=== PATIENT | female | born 1955 | race Caucasian/White ===

== ENCOUNTER 2017-07-01 06:37 | Inpatient (IN) | payer OTHER ==
[~2017-07-01] VITALS: Ht 170.2 cm; Wt 60.3 kg
[2017-07-01] VITALS (8 sets, daily range): BP systolic 115–155; BP diastolic 64–77
[~2017-07-01 06:37] MED LIST: NOHOMEMEDICATIONS; NORCO 5-325 TA1 EACH PO
[2017-07-01] MEDS ORDERED: XANAX 0.5 MG0.5 MG PO (06:40)
[2017-07-01] MEDS ORDERED: TRAZODONE 150150 M1 PO (06:40)
[2017-07-01] MEDS ORDERED: LYRICA 50 MG50 MG PO (06:41)
[2017-07-01] MEDS ORDERED: METFORMIN HCL500 MG PO (06:41)
[2017-07-01] MEDS ORDERED: NEURONTIN 300300 M1 PO (06:41)
[2017-07-01] MEDS ORDERED: CARISOPRODOL 3350 MG PO (06:41)
[2017-07-01] MEDS ORDERED: SYNTHROID75 MCG PO (06:42)
[2017-07-01 07:11] LABS: HEMATOCRIT 42.8 % (37.0-47.0); HEMOGLOBIN 14.5 gm/dL (12.0-15.0); MCHC 33.8 g/dL (28.0-37.0); MCV 97.6 fL (80.0-100.0); MPV 7.2 fl. (7.2-11.1); NUCLEATED RBCS 0 /100WBC; PLATELET COUNT* 254 thou/uL (150-400); RBC 4.39 mil/uL (4.20-5.00); RDW-CV 12.5 % (10.5-14.5); WBC 20.2 thou/uL (4.0-11.0)
[2017-07-01 07:21] LABS: ANION GAP 10 mmol/L (7-16); BUN 18 mg/dL (7-18); CALCIUM 9.4 mg/dL (8.5-10.1); CHLORIDE 104 mmol/L (98-107); CO2 25 mmol/L (21-32); CREATININE 0.9 mg/dL (0.6-1.3); GLUCOSE 57 mg/dL (70-99); POTASSIUM 3.6 mmol/L (3.5-5.1); SODIUM 139 mmol/L (136-145)
[2017-07-01 07:22] LABS: APTT 27.8 Seconds (25.0-31.3); PROTIME 9.4 Seconds (9.20-11.50)
[2017-07-01 07:39] LABS: ALBUMIN 4.5 g/dL (3.4-5.0); ALKALINE PHOSPHATASE 112 U/L (46-116); CK-MB MASS 13.3 ng/mL (<0.5-3.6); NT-PRO BRAIN NAT PEPTIDE 437 pg/mL (<300); SGOT 48 U/L (15-37); SGPT 40 U/L (30-65); TOTAL BILIRUBIN 0.2 mg/dL (<0.1-1.0); TOTAL PROTEIN 8.5 g/dL (6.4-8.2); TROPONIN-I LEVEL <0.06 ng/mL (<0.06)
[2017-07-01 07:58] LABS: ABSOLUTE LYMPHOCYTES 0.6 thou/uL (0.8-5.3); ABSOLUTE MONOCYTES 0.4 thou/uL (0.0-1.2); ABSOLUTE NEUTROPHILS 19.2 thou/uL (1.6-8.1)
[2017-07-01 07:59] LABS: PLATELET ESTIMATE ADEQUATE
[2017-07-01 08:28] LABS: URINE BILIRUBIN NEGATIVE (Negative); URINE BLOOD NEGATIVE (Negative); URINE CLARITY CLEAR; URINE COLOR YELLOW; URINE GLUCOSE-RANDOM NEGATIVE (Negative); URINE KETONES NEGATIVE (Negative); URINE LEUKOCYTES-REFLEX NEGATIVE (Negative); URINE NITRITE-REFLEX NEGATIVE (Negative); URINE PROTEIN NEGATIVE (Negative); URINE UROBILINOGEN 0.2 E.U./dl (0.2-1.0)
[2017-07-01 10:11] LABS: BE -0.3 mmol/L (-2 to +3); HCO3 21.4 mmol/L (22.0-26.0); PO2 83.3 mmHg (75.0-100.0); pH 7.517 (7.340-7.450)
--- NOTE | 2017-07-01 10:35 | EKG ---
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 : 1955 Requested By: Denis Brown Order Number: [id number] MD: Jackson Newell Measurements Intervals [place] Rate: 64 P: 65 GA: 149 QRS: -45 QRSD: 105 T: 47 QT: 494 QTc: 510 Interpretive Statements Sinus rhythm Left anterior fascicular block Prolonged QT interval No previous ECG available for comparison Electronically Signed On 07-01-2017 10:35:12 MARKETING OPERATIONS ASSISTANT by Jackson Newell [email or web address] <ELECTRONICALLY SIGNED> By: Jackson Newell MD, [facility] 07/01/17 [id number] Jackson Newell MD, [facility] /EPI
[2017-07-01 15:33] LABS: AMP/METHAMP Negative (Negative); BARBITURATES Negative (Negative); BENZODIAZEPINES Negative (Negative); COCAINE Negative (Negative); METHADONE Negative (Negative); OPIATES POSITIVE (Negative); PCP Negative (Negative); THC Negative (Negative)
--- NOTE | 2017-07-01 15:48 | NUR ---
CONSULTED TO ASSIST WITH CENTRAL LINE PLACEMENT IN ED. ASSESSED SITUATION WITH DR. ASH. PT ALEADY PREPED AND DRAPED PER PROTOCOL. STERILE GOWN AND GLOVE AFTER HAND HYGINE. RIGHT IJ IDENTIFIED WITH ULTRASOUND AND NOTED TO BE WIDLEY PATENT AND EASILY COMPRESSABLE. RIGHT IJ CANNULATED WITH IMMEDIATE BLOOD RETURN NOTED. WIRE PASSED WITHOUT RESISTANCE. SKIN ESTEFANY TO INSERTION SITE. DIALATER INTRODUCED OVER WIRE AND THEN REMOVED. TRIPLE LUMAN CATH INSERTED OVER WIRE WITH NO RESISTANCE MET. WIRE REMOVED. DR. ASH SUTURED LINE IN PLACE. DRESSING APPLIED. ALL PORT FLUSH EASE AND HAVE GOOD BRISK BLOOD RETURN. STAT CHEST X-RAY SHOWS TIP IN SVC.
--- NOTE | 2017-07-01 18:00 | NUR ---
PT ARRIVED TO ROOM ICU 5 VIA CART FROM ED. PT ASSESSMENT CHARTED. VSS THROUGHOUT THE SHIFT. BLOOD SUGAR AT IT'S LOWEST WAS 21 TREATED WITH PRN D50 IV PUSH. PT BECOMES VERY LETHARGIC, CONFUSED, COOL AND CLAMMY AT THIS STATE. CENTRAL LINE PLACED IN THE ED. NO COMPLAINTS OF NAUSEA OR VOMMITING. PT BECAME MORE A&O LATER IN THE AFTERNOON AND WAS ABLE TO EAT A BOXED LUNCH, DINNER, JUICE, AND SODA. IV FLUIDS WERE CHANGED TO D20 NS @ 100. PT CONTINUES TO BECOME MORE ALERT. PT IS COMPLAINING OF INCREASED BACK, SHOULDER, AND NECK PAIN. PRN PAIN MEDICATION ORDER RECEIVED. NO OTHER COMPLAINTS.
[2017-07-02] VITALS (12 sets, daily range): BP systolic 123–151; BP diastolic 66–87
--- NOTE | 2017-07-02 05:16 | NUR ---
PATIENT PRGRESSING TOWARDS DISCHARGE GOALS. BS HAVE BEEN STABLE SINCE 2199. PT ABLE TO TOLERATE APPLE JUICE AND ISATU CRACKERS WELL. PT HAS BEEN COMPLAINING OF GENERALIZED PAIN ALL OVER. PATIENT WANTS TO GET OUT OF BED AND WALK AROUND THE UNIT. ALERT ORIENT BUT CONFUSED AT TIMES. CONSISTENT REORIENTATION GIVEN. PT WAS ANXIOUS/TEARY-EYED MOST OF THE SHIFT. ALOT OF REASSURANCE AND EDUCATION GIVEN TO EASE ANXIETY. PT RR, HR, BP, O2 ALL WNL. FALL PRECAUTIONS IN PLACE, EDUCATION GIVEN AND PT VOICED UNDERSTANDING. WILL CONTINUE TO MONITOR CLOSELY.
[2017-07-02 07:36] LABS: C-PEPTIDE 22.5 ng/mL (1.1-4.4); INSULIN 120.3 uIU/mL (2.6-24.9)
--- NOTE | 2017-07-02 13:14 | NUR ---
PATIENT IS MED [facility] STATUS. VERY ARGUMENTATIVE AND AGITATED. CATHETER D/C PER PATIENT REQUEST. HAS A MIGRAINE BUT MEDICATIONS DO NOT HELP. SUGARS HAVE REMAINED IN A STABLE RANGE TODAY WITHOUT D10 FLUIDS. PATIENT WILL GO TO ROOM 311 ONCE REPORT IS CALLED. BED IN LOWEST POSITION, CALL LIGHT IN REACH, PREFABRICATED HOUSES TRIMMER IN PLACE.
[2017-07-02 14:12] LABS: ALBUMIN 2.7 g/dL (3.4-5.0); CALCIUM 8.3 mg/dL (8.5-10.1); CREATININE 0.7 mg/dL (0.6-1.3); POTASSIUM 3.8 mmol/L (3.5-5.1); TOTAL BILIRUBIN 0.1 mg/dL (<0.1-1.0); TOTAL PROTEIN 5.5 g/dL (6.4-8.2)
--- NOTE | 2017-07-02 14:18 | NUR ---
PATIENT LEFT ARM IS BOTHERING HER THE LAST 30 MINS. IS SWOLLEN FROM ELBOW TO WRIST, PAINFUL TO TOUCH. IV DC ON THAT ARM BUT NOTHING HAS BEEN RUNNING THROUGH THAT ALL DAY. DR LEWIS NOTIFIED
[2017-07-02 14:38] LABS: HEMATOCRIT 33.1 % (37.0-47.0); MCH 33.1 pg (26.0-34.0); MCHC 34.4 g/dL (28.0-37.0); MPV 8.1 fl. (7.2-11.1); RBC 3.45 mil/uL (4.20-5.00); RDW-CV 12.7 % (10.5-14.5); WBC 11.5 thou/uL (4.0-11.0)
[2017-07-02 14:40] LABS: HEMOGLOBIN 11.4 gm/dL (12.0-15.0)
--- NOTE | 2017-07-02 15:04 | NUR ---
PATIENT CAME TO THE FLOOR FROM THE ICU AT 1504 VIA WHEELCHAIR WITH FAMILY. PATIENT IS IN STABLE CONDITION. AGREE WITH THE ASSESSMENT FROM EARLIER TODAY, EDUCATION ON ROOM HAS BEEN DONE.
--- NOTE | 2017-07-02 18:02 | NUR ---
PATIENT CAME TO THE FLOOR TODAY FROM THE ICU IN STABLE CONDITION. COMPLAINS OF A HEADACHE/MIGRAINE BUT DOES NOT REQUEST ANY MEDICATION. PATIENT IS UP ALIB ROOM, FAMILY IS AT BEDSIDE OFF AND ON. CALL LIGHT IS IN REACH, WILL CONTINUE TO MONITOR.
[2017-07-03 00:24] VITALS: BP 121/70
[2017-07-03 04:32] VITALS: BP 138/92
--- NOTE | 2017-07-03 06:52 | NUR ---
PATIENT SLEPT PART OF THE NIGHT. PATIENT WAS SINUS TACH ON THE MONITOR MOST OF THE NIGHT 100-120'S BUT DROPPED BACK DOWN TO 70-80'S ABOUT 0500. PATIENT WAS GIVEN IMITREX ONCE FOR MIGRAINE AND HYDROCODONE ONCE FOR BACK PAIN. PATIENT IS HOPING TO GO HOME TODAY. WILL CONTINUE TO MONITOR.
[2017-07-03 09:15] VITALS: BP 109/78
[2017-07-03 10:01] VITALS: BP 109/78
--- NOTE | 2017-07-03 10:27 | NUR ---
MET WITH PT TO DISCUSS HOME SITUATION/DC PLANNING. PT LIVES WITH SPOUSE. SHE STATES SHE IS INDEPENDENT AND ACTIVE. HAS BEEN DIABETIC FOR ABOUT 5 YRS AND STATES SHE MANAGES IT WELL AND 'KNOW WHAT HAPPENED.' SHE HAS METER AND SUPPLIES AT HOME. PT USES NO OTHER EQUIPMENT AND PLANS TO RETURN HOME AT DC AND HOPES IT'S TODAY.
--- NOTE | 2017-07-03 11:26 | NUR ---
PATIENT DISCHARGED TO HOME WITH SPOUSE. CENTRAL LINE DC'D PER PROTOCOL. BS 131 THIS AM, NO INSULIN REQUIRED. IV SL DC'D. VERBALIZES UNDERSTANDING OF PAPEWORK, NO SCRIPTS. PATIENT TAKEN OUT WITH ALL BELONGINGS VIA WHEELCHAIR WITH STAFF.
== END 2017-07-03 10:45 | disposition home or self-care (01) | DRG 917 ==
LOC: M.ERS 06:37 → M.TBA-ER 10:05 → M.ICU 10:05 → M.3W 07-02 15:02
PROVIDERS: Family Medicine; Personal Emergency Response Attendant; ADMIT Internal Medicine
PROC: 02HV33Z Insertion of Infusion Device into Superior Vena Cava, Percutaneous Approach (ICD-10-PCS; principal; 2017-07-01)
DX: T38.3X1A Poisoning by insulin and oral hypoglycemic [antidiabetic] drugs, accidental (unintentional), initial encounter (principal); G93.41 Metabolic encephalopathy; J96.10 Chronic respiratory failure, unspecified whether with hypoxia or hypercapnia; E11.649 Type 2 diabetes mellitus with hypoglycemia without coma; F17.210 Nicotine dependence, cigarettes, uncomplicated; D72.829 Elevated white blood cell count, unspecified; F41.9 Anxiety disorder, unspecified; E03.9 Hypothyroidism, unspecified; M54.9 Dorsalgia, unspecified; G89.29 Other chronic pain; G43.909 Migraine, unspecified, not intractable, without status migrainosus; Z88.6 Allergy status to analgesic agent; Z83.3 Family history of diabetes mellitus; Z84.1 Family history of disorders of kidney and ureter; Y92.89 Other specified places as the place of occurrence of the external cause

== ENCOUNTER → 2018-12-08 | Outpatient (CLI) | payer OTHER ==
[~2018-12-08] MED LIST changes: +CARISOPRODOL 3350 MG PO; +HYDROCODON-ACE1 EAC8 PO; +LYRICA 50 MG50 MG PO; +METFORMIN HCL500 MG PO; +NEURONTIN 300300 M1; +NEURONTIN 300300 M1 PO; +SYNTHROID75 MCG PO; +TRAZODONE 150150 M1 PO; +XANAX 0.5 MG0.5 MG PO
== END ==
LOC: M.PC 01:18
DX: M51.16 Intervertebral disc disorders with radiculopathy, lumbar region (principal); M12.88 Other specific arthropathies, not elsewhere classified, other specified site

== ENCOUNTER → 2018-12-09 | Outpatient (CLI) | payer OTHER | LOC: M.MRI 08:35 | DX: M47.817 Spondylosis without myelopathy or radiculopathy, lumbosacral region (principal); M48.07 Spinal stenosis, lumbosacral region; M89.38 Hypertrophy of bone, other site ==

== ENCOUNTER → 2018-12-10 | Outpatient (CLI) | payer OTHER | END | disposition home or self-care (01) | LOC: M.PC 05:01 | DX: M51.16 Intervertebral disc disorders with radiculopathy, lumbar region (principal); M47.26 Other spondylosis with radiculopathy, lumbar region; M43.16 Spondylolisthesis, lumbar region; E11.9 Type 2 diabetes mellitus without complications; F17.210 Nicotine dependence, cigarettes, uncomplicated; Z88.6 Allergy status to analgesic agent; Z88.8 Allergy status to other drugs, medicaments and biological substances; Z79.899 Other long term (current) drug therapy; Z98.890 Other specified postprocedural states ==

== ENCOUNTER → 2018-12-24 | Outpatient (CLI) | payer OTHER | END | disposition home or self-care (01) | LOC: M.PC 05:21 | DX: M51.16 Intervertebral disc disorders with radiculopathy, lumbar region (principal); M51.17 Intervertebral disc disorders with radiculopathy, lumbosacral region; M47.26 Other spondylosis with radiculopathy, lumbar region; M43.16 Spondylolisthesis, lumbar region; E11.9 Type 2 diabetes mellitus without complications; F17.210 Nicotine dependence, cigarettes, uncomplicated; Z79.899 Other long term (current) drug therapy; Z88.6 Allergy status to analgesic agent; Z98.890 Other specified postprocedural states; Z88.8 Allergy status to other drugs, medicaments and biological substances ==

== ENCOUNTER → 2019-01-19 | Outpatient (CLI) | payer OTHER ==
[~2019-01-19] MED LIST changes: +MELOXICAM15 MG PO
== END | disposition home or self-care (01) ==
LOC: M.PC 05:05
DX: M51.17 Intervertebral disc disorders with radiculopathy, lumbosacral region (principal); M47.26 Other spondylosis with radiculopathy, lumbar region; G89.29 Other chronic pain; M43.17 Spondylolisthesis, lumbosacral region; F17.210 Nicotine dependence, cigarettes, uncomplicated; Z79.899 Other long term (current) drug therapy; Z98.890 Other specified postprocedural states; Z88.8 Allergy status to other drugs, medicaments and biological substances

== ENCOUNTER → 2019-02-02 | Outpatient (CLI) | payer OTHER | LOC: M.PC 07:19 | DX: M51.36 Other intervertebral disc degeneration, lumbar region (principal); E11.9 Type 2 diabetes mellitus without complications ==

== ENCOUNTER → 2019-03-30 | Outpatient (CLI) | payer OTHER | LOC: M.PC 04:53 | DX: M51.16 Intervertebral disc disorders with radiculopathy, lumbar region (principal); M12.88 Other specific arthropathies, not elsewhere classified, other specified site; E11.9 Type 2 diabetes mellitus without complications; M43.17 Spondylolisthesis, lumbosacral region ==